=== PATIENT | male | born 1975 | race Caucasian/White ===

== ENCOUNTER → 2019-12-15 10:20 | Outpatient (CLI) | payer OTHER, SELFPAY ==
[2019-12-16 14:11] LABS: COVID19 Sendout Not Detected (Not Detect)
== END ==
PROVIDERS: Visit Provider Physician Assistant
DX: R05 Cough (principal); R50.9 Fever, unspecified; Z20.828 Contact with and (suspected) exposure to other viral communicable diseases
CPT/HCPCS: 87635

== ENCOUNTER 2019-12-26 16:54 | Emergency (ER) | payer OTHER, SELFPAY ==
[2019-12-26 17:02] VITALS: BP 169/89; PULSE 85; RESP 16; TEMP 36.7; O2SAT 100; BMI 27.6
--- NOTE | 2019-12-26 17:02 | DI.RAD.S_ITS ---
PROCEDURE: XR CHEST 1V INDICATIONS: chest pain TECHNIQUE: One view of the chest was acquired. COMPARISON: None. FINDINGS: Surgical changes and devices: None. Lungs and pleura: Lungs are clear. No pleural effusions or pneumothorax. Mediastinum: Mediastinal contours appear normal. Heart size is normal. Bones and chest wall: No suspicious bony lesions. Overlying soft tissues appear unremarkable. IMPRESSION: No acute cardiopulmonary pathology. Dictated by: Devin Montana M.D. on 12/26/2019 at 16:51 Approved by: Devin Montana M.D. on 12/26/2019 at 16:51
--- NOTE | 2019-12-26 17:15 | ED.CHESTPAIN ---
HPI - Chest Pain General Chief Complaint: Chest Pain Stated Complaint: Chest pain, left arm pain Time Seen by Provider: 12/26/19 17:10 History of Present Illness HPI narrative: 44-year-old gentleman who was simply sitting on his couch doing some computer work this afternoon when he developed left-sided chest pain radiating down his left arm. It was not associated with dyspnea, nausea, diaphoresis. Is somewhat positional and is not associated with eating or with activity. He does note that he had a mild upper respiratory infection last week. He was tested for Covid and it was negative. Is feeling significantly better after that episode. Related Data Allergies Allergy/AdvReac Type Severity Reaction Status Date / Time No Known Drug Allergies Allergy Unverified 12/15/19 10:18 Review of Systems Review of Systems Narrative: Pertinent positive and negative findings as per HPI Remainder of review of systems is otherwise unremarkable for Constitutional: Fevers, chills, weakness ENT: No sore throat, neck pain, ear pain CV: palpitations, dyspnea on exertion Respiratory: Cough, wheeze, dyspnea GI: Nausea, vomiting, diarrhea, change in bowel habits, black or bloody stools : Dysuria, hematuria, flank pain MS: Muscle weakness, numbness, joint swelling or warmth Skin: Rashes, nonhealing lesions Neuro: Syncope, dizziness, tingling Patient History Medical History Healthy adult (Acute) Social History Smoking Status: Current some day smoker Smoking Status: Current some day smoker Substance Use Type: does not use Exam Narrative Exam Narrative: General: Healthy appearing, in no acute distress. Able to give a complete and coherent history. Well-nourished well-developed HEENT: Moist mucous membranes, normal sclera with reactive pupils, Neck: No JVD, supple Respiratory: Lungs are clear to auscultation, no wheezing no rales no rhonchi. Full and symmetrical air movement Chest: With deep breathing pain is slightly reproducible. He does not have tenderness along the costochondral margins. With compression along the mid axillary line on the left pain can also be reproduced. Cardiac: Regular rate and rhythm no murmurs no bruits Abdomen: Soft nontender good bowel tones, no flank pain Skin: Warm and dry, no rashes Neurologic: Grossly neurologically intact with no obvious asymmetries or abnormalities Extremities: No trauma, well perfused Psych: Cooperative, appropriate insight and affect Initial Vital Signs Initial Vital Signs: Vital Signs Temperature 98.0 F 12/26/19 17:02 Pulse Rate 85 12/26/19 17:02 Respiratory Rate 16 12/26/19 17:02 Blood Pressure 169/89 H 12/26/19 17:02 Pulse Oximetry 100 12/26/19 17:02 Course Orders Ordered: Discontinued Medications Aspirin (Aspirin Chew) 324 mg PO NOW ONE Stop: 12/26/19 17:11 Last Admin: 12/26/19 17:34 Dose: 324 mg Documented by: RU Sodium Chloride (Normal Saline 0.9%) 1,000 mls @ 1,000 mls/hr IV BOLUS ONE Stop: 12/26/19 18:10 Last Infusion: 12/26/19 18:29 Dose: 0 mls/hr Documented by: Admin: 12/26/19 17:48 Dose: 1,000 mls/hr Documented by: RU Ketorolac Tromethamine (Toradol) 15 mg IV NOW ONE Stop: 12/26/19 17:50 Last Admin: 12/26/19 17:59 Dose: 15 mg Documented by: RU Nitroglycerin (Nitrostat) 0.4 mg SL [id number] PRN PRN Reason: Chest Pain Vital Signs Vital signs: Vital Signs - 8 hr 12/26/19 17:02 12/26/19 17:41 Temperature 98.0 F Pulse Rate 85 80 Respiratory Rate 16 12 Blood Pressure 169/89 H Pulse Oximetry 100 97 MDM - Chest Pain Medical Records Data Attestation: I reviewed the patient's medical records. Lab Data Attestation: I reviewed the patient's lab results. Result diagrams: 12/26/19 17:10 12/26/19 17:10 Labs: Lab Results 12/26/19 12/26/19 12/26/19 Range/Units 17:10 17:10 17:10 WBC 13.3 H (4.5-11.0) X10^3/uL RBC 4.98 (4.5-5.9) X10^6/uL Hgb 15.3 (13.5-17.5) g/dL Hct 45.2 (41-53) % MCV 90.7 (80-100) fL MCH 30.7 (26-34) PG MCHC 33.9 (30-36) % RDW 13.6 (11.6-14.8) % Plt Count 265 (150-400) X10^3/uL Neut % (Auto) 70.6 (50-75) % Lymph % (Auto) 21.8 L (25-40) % Morrow % (Auto) 5.8 (3-14) % Eos % (Auto) 1.0 L (2-4) % Baso % (Auto) 0.8 (0-2) % Neut # (Auto) 9400 H (8977-5131) /uL Lymph # (Auto) 2900 (8772-2727) /uL Morrow # (Auto) 800 (0-900) /uL Eos # (Auto) 100 (0-450) /uL Baso # (Auto) 100 (0-100) /uL PT 12.1 (10.1-12.7) SECONDS INR 1.1 (0.9-1.3) APTT 34 (26.4-36.2) SECONDS Sodium 140 (137-145) mmol/L Potassium 3.8 (3.4-5.1) mmol/L Chloride 102 (98-107) mmol/L Carbon Dioxide 30 (22-32) mmol/L BUN 16 (9-20) mg/dL Creatinine 1.21 (0.66-1.25) mg/dL Estimated GFR > 60.0 (>60) mL/min BUN/Creatinine Ratio 13.2 (6-22) Glucose 98 (70-100) mg/dL Calcium 9.3 (8.4-10.2) mg/dL Total Bilirubin 0.4 (0.2-1.3) mg/dL AST 26 (17-59) IU/L ALT 33 (<50) IU/L Alkaline Phosphatase 67 (38-126) U/L Total Creatine Kinase 77 (55-170) U/L CK-MB (CK-2) TNP CK-MB (CK-2) Rel Index TNP Troponin I < 0.012 (0.01-0.034) ng/mL Total Protein 7.4 (6.3-8.2) g/dL Albumin 4.4 (3.5-5.0) g/dL Globulin 3.0 (1.7-4.1) g/dL Albumin/Globulin Ratio 1.5 (1.0-2.8) Lipase 173 (23-300) U/L TSH (0.47-4.68) uIU/mL COVID-19 PCR (Negative) 12/26/19 12/26/19 Range/Units 17:10 18:12 WBC (4.5-11.0) X10^3/uL RBC (4.5-5.9) X10^6/uL Hgb (13.5-17.5) g/dL Hct (41-53) % MCV (80-100) fL MCH (26-34) PG MCHC (30-36) % RDW (11.6-14.8) % Plt Count (150-400) X10^3/uL Neut % (Auto) (50-75) % Lymph % (Auto) (25-40) % Morrow % (Auto) (3-14) % Eos % (Auto) (2-4) % Baso % (Auto) (0-2) % Neut # (Auto) (6205-7958) /uL Lymph # (Auto) (3108-0131) /uL Morrow # (Auto) (0-900) /uL Eos # (Auto) (0-450) /uL Baso # (Auto) (0-100) /uL PT (10.1-12.7) SECONDS INR (0.9-1.3) APTT (26.4-36.2) SECONDS Sodium (137-145) mmol/L Potassium (3.4-5.1) mmol/L Chloride (98-107) mmol/L Carbon Dioxide (22-32) mmol/L BUN (9-20) mg/dL Creatinine (0.66-1.25) mg/dL Estimated GFR (>60) mL/min BUN/Creatinine Ratio (6-22) Glucose (70-100) mg/dL Calcium (8.4-10.2) mg/dL Total Bilirubin (0.2-1.3) mg/dL AST (17-59) IU/L ALT (<50) IU/L Alkaline Phosphatase (38-126) U/L Total Creatine Kinase (55-170) U/L CK-MB (CK-2) CK-MB (CK-2) Rel Index Troponin I (0.01-0.034) ng/mL Total Protein (6.3-8.2) g/dL Albumin (3.5-5.0) g/dL Globulin (1.7-4.1) g/dL Albumin/Globulin Ratio (1.0-2.8) Lipase (23-300) U/L TSH 1.56 (0.47-4.68) uIU/mL COVID-19 PCR Negative (Negative) MDM Narrative Medical decision making narrative: Left-sided pleuritic chest pain developing a couple days after resolve symptoms from mild upper respiratory infection. No signs or symptoms clinically or with labs or x-ray to suggest pneumonia. No evidence of acute coronary syndrome and EKG is equally reassuring. No pneumothorax. Do not suspect PE given lack of Usman risk factors and no significant tachycardia. Patient was feeling better after L of fluid and IV Toradol. He is safe for home discharge Discharge Plan Departure Patient Disposition: Home Clinical Impression: Atypical chest pain Discharge Date/Time: 12/26/19 18:31 Instructions: DI for Pleurisy Activity Restrictions/Additional Instructions: Thank you for coming in today Your labs, EKG and chest x-ray were all very reassuring. There is no evidence of significant infection, heart attack or heart attack like syndrome, no shingles to explain the pain going down your arm no evidence of nerve impingement coming from your neck With the recent cough that you experienced I am wondering if this pain is actually more pleuritic in nature. At this time it is safe to go home. Using 400 mg of ibuprofen (2 [id number] pills) and 1 Tylenol every 6 hours can be very helpful in controlling pain. If you find that your symptoms are changing, worsening, are associated with increasing shortness of breath or sweating than please return to the emergency room for additional evaluation.
[2019-12-26 17:19] LABS: Add Manual Diff / Slide Review NO; Basophils Absolute Auto 100 /uL (0-100); Basophils Percent Auto 0.8 % (0-2); Eosinophils Absolute Auto 100 /uL (0-450); Hematocrit 45.2 % (41-53); Hemoglobin 15.3 g/dL (13.5-17.5); Lymphocytes Absolute Auto 2900 /uL (1100-4500); Lymphocytes Percent Auto 21.8 % (25-40); Mean Corpuscular HGB Conc 33.9 % (30-36); Mean Corpuscular Hemoglobin 30.7 PG (26-34); Mean Corpuscular Volume 90.7 fL (80-100); Monocytes Absolute Auto 800 /uL (0-900); Monocytes Percent Auto 5.8 % (3-14); Neutrophils Absolute Auto 9400 /uL (1500-7000); Neutrophils Percent Auto 70.6 % (50-75); Platelet Count 265 X10^3/uL (150-400); Red Blood Cell Count 4.98 X10^6/uL (4.5-5.9); Red Cell Distribution Width 13.6 % (11.6-14.8); White Blood Cell Count 13.3 X10^3/uL (4.5-11.0)
[2019-12-26 17:26] LABS: INR 1.1 (0.9-1.3); Prothrombin Time 12.1 SECONDS (10.1-12.7)
[2019-12-26 17:29] LABS: PTT Partial Thromboplastin Tim 34 SECONDS (26.4-36.2)
[2019-12-26 17:32] LABS: Alanine Aminotransferase 33 IU/L (<50); Albumin 4.4 g/dL (3.5-5.0); Albumin Globulin Ratio 1.5 (1.0-2.8); Alkaline Phosphatase 67 U/L (38-126); Aspartate Aminotransferase 26 IU/L (17-59); BUN Creatinine Ratio 13.2 (6-22); Bilirubin Total 0.4 mg/dL (0.2-1.3); Blood Urea Nitrogen 16 mg/dL (9-20); Calcium 9.3 mg/dL (8.4-10.2); Carbon Dioxide 30 mmol/L (22-32); Chloride 102 mmol/L (98-107); Creatine Kinase 77 U/L (55-170); Estimated Glomerular Filt Rate > 60.0 mL/min (>60); Glucose 98 mg/dL (70-100); HEMOLYSIS < 15 (0-50); Lipase 173 U/L (23-300); Potassium 3.8 mmol/L (3.4-5.1); Sodium 140 mmol/L (137-145); Total Protein 7.4 g/dL (6.3-8.2)
[2019-12-26] MEDS: ASPIRIN 81 MG CHEW TAB 324 MG PO (17:34)
[2019-12-26 17:41] VITALS: PULSE 80; RESP 12; O2SAT 97
[2019-12-26 17:42] LABS: Troponin I < 0.012 ng/mL (0.01-0.034)
[2019-12-26] MEDS: SODIUM CHLORIDE 0.9% 1,000 ML 1000 ML IV (17:48)
[2019-12-26] MEDS: KETOROLAC 60 MG/2 ML VIAL 15 MG IV (17:59)
[2019-12-26 18:00] VITALS: BP 126/79; PULSE 76; RESP 15; O2SAT 98
[2019-12-26 18:30] VITALS: BP 115/77; PULSE 74; O2SAT 99
[2019-12-26 18:49] LABS: Thyroid Stimulating Hormone 1.56 uIU/mL (0.47-4.68)
[2019-12-26 18:55] LABS: COVID19 -Nasal RAPID Negative (Negative)
== END 2019-12-26 18:31 | disposition home or self-care (01) ==
PROVIDERS: Emergency Provider Emergency Medicine
DX: R07.89 Other chest pain (principal)
CPT/HCPCS: 36415; 71045; 80053; 82550; 83690; 84443; 84484; 85025; 85610; 85730; 87635; 93005; 96361; 96374; 99284; J1885

== ENCOUNTER 2019-12-27 21:24 | Emergency (ER) | payer OTHER, SELFPAY ==
[2019-12-27 21:28] VITALS: BP 124/70; PULSE 99; RESP 18; TEMP 37.1; O2SAT 95; BMI 27.6
--- NOTE | 2019-12-27 21:36 | ED_ITS ---
HPI - Chest Pain General Chief Complaint: Chest Pain Stated Complaint: SOB COUGH Time Seen by Provider: 12/27/19 21:25 Source: patient Mode of arrival: Ambulatory Limitations: no limitations History of Present Illness HPI narrative: 44-year-old male nonsmoker with no known medical history, no family history presents with his significant other and a chief complaint of ongoing 10 left-sided chest pain that is sharp and stabbing in nature. He states the pain is made worse by deep breaths and motion. He is not dizzy nor weak or lightheaded. He denies any nausea, vomiting or exertional provocation. He was seen and evaluated yesterday and had reassuring EKG, chest x-ray and lab work. He was treated for pleuritic-type chest pain and given appropriate return precautions. Today he returns as his symptoms have not only improved but have worsened. MD complaint: chest pain Duration: constant Pain location: left chest Severity: severe Severity scale (1-10): 10 Quality: sharp Pain radiation: none Relieving factors: rest Exacerbating factors: inspiration and movement Context: other Treatments prior to arrival chest pain: none Related Data Allergies Allergy/AdvReac Type Severity Reaction Status Date / Time No Known Drug Allergies Allergy Unverified 12/27/19 21:31 Review of Systems Constitutional Constitutional: Denies chills, Denies fatigue, Denies fever(s), Denies frequent falls, Denies lethargy and Denies weakness Eyes Eyes: Denies change in vision, Denies eye discharge, Denies irritation and Denies loss of vision ENT Ears, Nose, Mouth, and Throat: Denies change in voice, Denies dizziness, Denies neck pain, Denies sore throat and Denies throat swelling Cardiovascular Cardiovascular: Reports chest pain, Denies irregular heart rhythm, Denies lightheadedness, Denies palpitations, Denies dyspnea, Denies dyspnea on exertion and Denies orthopnea Respiratory Respiratory: Denies cough, Denies dyspnea, Denies dyspnea on exertion and Denies wheezing Gastrointestinal Gastrointestinal: Denies abdominal pain, Denies change in bowel habits, Denies diarrhea, Denies nausea and Denies vomiting Musculoskeletal Musculoskeletal: Denies neck pain and Denies numbness Integumentary/Breasts Skin/Breast: Denies pruritus, Denies erythema, Denies rash and Denies wounds Neurologic Neurologic: Denies behavioral changes, Denies confusion, Denies dizziness, Denies frequent falls, Denies loss of vision, Denies numbness and Denies weakness Psychiatric Psychiatric: Denies anxiety, Denies behavioral changes, Denies confusion, Denies depression, Denies homicidal ideation and Denies suicidal ideation Endocrine Endocrine: Denies fatigue, Denies flushing and Denies palpitations Hematologic/Lymphatic Hematologic/Lymphatic: Denies easy bruising Allergic/Immunologic Allergic/Immunologic: Denies urticaria, Denies throat swelling and Denies wheez ing Patient History Medical History Healthy adult (Acute) Social History Smoking Status: Current some day smoker Smoking Status: Current some day smoker Substance Use Type: does not use Exam Narrative Exam Narrative: GENERAL: [40] year old patient appears stated age. Well- nourished, well-developed patient, in obvious distress, obviously quite uncomfortable. HEAD: Atraumatic. Normocephalic. EYES: Pupils equal round and reactive. Extraocular motions intact. No scleral icterus. No injection or drainage. ENT: Nose without bleeding, purulent drainage. Throat without erythema, tonsillar hypertrophy or exudate. Airway patent. NECK: Trachea midline. Non tender CARDIOVASCULAR: Regular rate and rhythm without murmurs, gallops, or rubs. RESPIRATORY: Clear to auscultation. Breath sounds equal bilaterally. No wheezes, rales, or rhonchi. GASTROINTESTINAL: Abdomen soft, non-tender, nondistended. EXTREMITIES: No edema or joint tenderness. BACK: Nontender without deformity or crepitance. No flank tenderness. NEURO: AOx3. SKIN: No rash or erythema of visible areas Initial Vital Signs Initial Vital Signs: Vital Signs Temperature 98.7 F 12/27/19 21:28 Pulse Rate 99 H 12/27/19 21:28 Respiratory Rate 18 12/27/19 21:28 Blood Pressure 124/70 12/27/19 21:28 Pulse Oximetry 95 12/27/19 21:28 Course Orders Ordered: ED Orders 12/27/19 21:37 EKG-12 Lead Stat 12/27/19 21:40 C-Reactive Protein Quant Stat Complete Blood Count AUTO DIFF Stat Comprehensive Metabolic Panel Stat D Dimer Stat Erythrocyte Sedimentation Rate Stat Lipase Stat NT-proBNP (BNP-Adult 18+) Stat Troponin & CK Cardiac Panel Stat Sodium Chloride (Normal Saline 0.9%) 1,000 mls @ 1,000 mls/hr IV BOLUS ONE Stop: 12/27/19 22:35 Last Admin: 12/27/19 21:42 Dose: 1,000 mls/hr Documented by: KARINE Heparin Sodium/Dextrose (Heparin Drip) 25,000 unit in 500 mls @ 20 mls/hr IV CONT [id number]; Protocol Last Admin: 12/27/19 21:53 Dose: 1,000 units/hr, 20 mls/hr Documented by: KARINE Nitroglycerin (Nitrostat) 0.4 mg SL [id number] PRN PRN Reason: Chest Pain Last Admin: 12/27/19 21:57 Dose: 0.4 mg Documented by: KARINE Discontinued Medications Aspirin (Aspirin Chew) 324 mg PO NOW ONE Stop: 12/27/19 21:44 Last Admin: 12/27/19 21:54 Dose: 324 mg Documented by: KARINE Heparin Sodium (Porcine) (Heparin) 5,000 unit IV NOW ONE Stop: 12/27/19 21:44 Last Admin: 12/27/19 21:52 Dose: 5,000 unit Documented by: KARINE Metoprolol Tartrate (Lopressor) 25 mg PO NOW ONE Stop: 12/27/19 21:44 Last Admin: 12/27/19 21:55 Dose: 25 mg Documented by: KARINE Vital Signs Vital signs: Vital Signs - 8 hr 12/27/19 21:28 12/27/19 21:57 12/27/19 22:02 Temperature 98.7 F Pulse Rate 99 H 93 H 102 H Respiratory Rate 18 18 Blood Pressure 124/70 128/85 137/89 Pulse Oximetry 95 98 MDM - Chest Pain Lab Data Result diagrams: 12/27/19 21:40 12/27/19 21:40 ECG Data Attestation: I personally reviewed and interpreted this ECG as follows: Prior ECG tracings: available for review Interpretation: EKG is normal sinus rhythm rate [90 ] ST elevations in V3, V4 and V5 with reciprocal change (depressions in lead 3) [facility] Narrative Medical decision making narrative: Upon receipt of EKG I sent it to on-call Cardiology, EKG is very concerning for an ischemic event, however his story and exam are very consistent with a pleuritic scenario, musculoskeletal, or pericarditis. After reviewing the EKG she agrees that it cannot be ignored and patient should be sent to [facility] with STEMI activation. Discharge Plan Departure [facility] Disposition: [facility] Clinical Impression: ST elevation (STEMI) myocardial infarction Qualifiers: Involved coronary artery: unspecified coronary artery Qualified Code(s): I21.3 - ST elevation (STEMI) myocardial infarction of unspecified site
[2019-12-27] MEDS: SODIUM CHLORIDE 0.9% 1,000 ML 1000 ML IV (21:42)
[2019-12-27] MEDS: HEPARIN 5,000 UNIT/ML VIAL 5000 UNIT IV (21:52)
[2019-12-27] MEDS: HEPARIN DRIP 25,000 UNIT/500 ML IV.SOLN 20 UNIT IV (21:53)
[2019-12-27] MEDS: ASPIRIN 81 MG CHEW TAB 324 MG PO (21:54)
[2019-12-27] MEDS: METOPROLOL IR 25 MG TABLET PO (21:55)
[2019-12-27 21:57] VITALS: BP 128/85; PULSE 93
[2019-12-27] MEDS: NITROGLYCERIN 0.4 MG SL TAB SL ×2 (21:57→22:05)
[2019-12-27 21:58] LABS: Add Manual Diff / Slide Review NO; Basophils Absolute Auto 100 /uL (0-100); Basophils Percent Auto 0.7 % (0-2); Eosinophils Absolute Auto 100 /uL (0-450); Eosinophils Percent Auto 0.5 % (2-4); Hematocrit 44.9 % (41-53); Hemoglobin 15.3 g/dL (13.5-17.5); Lymphocytes Absolute Auto 3500 /uL (1100-4500); Lymphocytes Percent Auto 24.1 % (25-40); Mean Corpuscular Hemoglobin 30.5 PG (26-34); Mean Corpuscular Volume 89.6 fL (80-100); Monocytes Absolute Auto 1200 /uL (0-900); Monocytes Percent Auto 8.3 % (3-14); Neutrophils Absolute Auto 9800 /uL (1500-7000); Neutrophils Percent Auto 66.4 % (50-75); Platelet Count 269 X10^3/uL (150-400); Red Blood Cell Count 5.01 X10^6/uL (4.5-5.9); Red Cell Distribution Width 13.2 % (11.6-14.8); White Blood Cell Count 14.7 X10^3/uL (4.5-11.0)
[2019-12-27 22:02] VITALS: BP 137/89; PULSE 102; RESP 18; O2SAT 98
[2019-12-27 22:02] LABS: D Dimer 225 ng/mL (<230)
[2019-12-27 22:03] LABS: Alanine Aminotransferase 24 IU/L (<50); Albumin 4.3 g/dL (3.5-5.0); Albumin Globulin Ratio 1.3 (1.0-2.8); Alkaline Phosphatase 61 U/L (38-126); Aspartate Aminotransferase 24 IU/L (17-59); BUN Creatinine Ratio 9.1 (6-22); Bilirubin Total 0.7 mg/dL (0.2-1.3); Blood Urea Nitrogen 10 mg/dL (9-20); Carbon Dioxide 26 mmol/L (22-32); Chloride 104 mmol/L (98-107); Creatine Kinase 60 U/L (55-170); Estimated Glomerular Filt Rate > 60.0 mL/min (>60); Globulin 3.3 g/dL (1.7-4.1); Glucose 94 mg/dL (70-100); HEMOLYSIS 43 (0-50); Lipase 133 U/L (23-300); Potassium 3.9 mmol/L (3.4-5.1); Sodium 138 mmol/L (137-145); Total Protein 7.6 g/dL (6.3-8.2)
[2019-12-27 22:09] VITALS: BP 139/82; PULSE 103; RESP 24; O2SAT 97
[2019-12-27 22:15] LABS: Troponin I < 0.012 ng/mL (0.01-0.034)
[2019-12-27 22:17] LABS: Erythrocyte Sedimentation Rate 14 MM/HR (0-15)
[2019-12-27 22:19] LABS: NT-proBNP (BNP-Adult 18+) 101 pg/mL (<125)
[2019-12-27 22:23] LABS: C-Reactive Protein Quant 15.1 mg/dL (<1.0)
== END 2019-12-27 22:14 | disposition short-term general hospital (02) ==
PROVIDERS: Emergency Provider Emergency Medicine
DX: I21.3 ST elevation (STEMI) myocardial infarction of unspecified site (principal); F17.210 Nicotine dependence, cigarettes, uncomplicated
CPT/HCPCS: 36415; 80053; 82550; 83690; 83880; 84484; 85025; 85379; 85651; 86140; 93005; 96365; 99284; 99285; 99291; J1644

== ENCOUNTER → 2020-11-11 19:50 | Outpatient (CLI) | payer OTHER, SELFPAY ==
[2020-11-11 20:31] LABS: COVID19 -Nasal RAPID Negative (Negative)
== END ==
PROVIDERS: Visit Provider Nurse Practitioner
DX: J31.2 Chronic pharyngitis (principal); Z20.822 Contact with and (suspected) exposure to COVID-19
CPT/HCPCS: 87070; 87635